=== PATIENT | female | born 1980 | race Caucasian/White ===

== ENCOUNTER 2024-05-25 15:07 | Outpatient (CLI) | payer OTHER, SELFPAY | END 2024-05-25 15:08 | disposition home or self-care (01) | LOC: NFLDREF 05-28 06:04 | PROVIDERS: Visit Provider Family Medicine | DX: N30.01 Acute cystitis with hematuria (principal); N39.0 Urinary tract infection, site not specified; R10.9 Unspecified abdominal pain | CPT/HCPCS: 87086 ==